=== PATIENT | female | born 2000 | race Two or more races ===

== ENCOUNTER 2024-11-19 07:14 | Emergency (ER) | payer OTHER, SELFPAY ==
[2024-11-19] VITALS (11 sets, daily range): BP systolic 118–123; BP diastolic 70–75; PULSE 100; RESP 18; TEMP 36.4; O2SAT 98–100
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
--- OUTSIDE RECORDS SUMMARY | 2024-11-19 07:19 | XMS_ITS | Encounter Summary ---
Author Organization [facility] Address [address] [place] [address] Phone Care Team Providers Care Ice Delivery Driver Name Role Phone Hollie Perry MD Primary Care Provider Hermann Leonard Primary Care Provider [phone] Encounter Details Date Type Department Care Team (Late st Contact Info) Description 11/30/2021 Lab Requisition [facility] [address] [place] [address] Karin Lin, MACHINE CEMENTER, PAVING BLOCK CUTTER [address] [place] [address] Encounter for pre-employment examination Social History Tobacco Use Types Packs/Day Years Used Date Smoking Tobacco: Never Smokeless Tobacco: Never Alcohol Use Standard Drinks/Week Comments Not Currently 0 (1 standard drink = 0.6 oz pur e alcohol) AUDIT-C Answer Date Recorded Frequency of Alcohol Consumption Never 03/13/2019 Average Number of Drinks Not on file 019 Frequency of Binge Drinking Not on file 02/23 PHQ-2 Answer Date Recorded Total Score - Questions 1-9 0 07/0 11/2020 Comments Unknown Sex and Gender Information Value Date Recorded Sex Assigned at Not on file Legal Sex Female 10:37 PM CDT Gender Identity Not on file Sexual Orientation Not on file COVID-19 Exposure Response Date Recorded In the last 10 days, have yo u been in contact with someone who was confirmed or suspected to have Coronavirus/COVID-19? Unable to assess 11/30/2021 1:28 PM CDT documented as of this encounter Plan of Treatment Not on file documented as of this encounter Procedures Procedure Name Priority Date/Time Associated Diagnosis Comments QUANTIFERON-TB GOLD PLUS Routine 11/30/2021 10:25 AM CDT Encounter for pre-employment examination documented in this encounter Results * QUANTIFERON-TB GOLD PLUS (11/30/2021 10:25 AM CDT) NIL CONTROL 0.04 <8.01 IU/mL 12/02/2021 11:24 AM CDT [facility] TB ANTIGEN 1 0.01 <0.35 IU/mL 12/02/2021 11:24 AM CDT [facility] TB ANTIGEN 2 0.03 <0.35 IU/mL 12/02/2021 11:24 AM CDT [facility] MITOGEN CONTROL >10.00 >0.49 IU/mL 12/03/19 11:24 AM CDT [facility] INTEPRETATION TB NEGATIVE NEGATIVE, NEGATIVE (TB antigen response less than 25% of internal negative control value) 12/02/2021 11:24 AM CDT [facility] Comment:No immune response t o Mycobacterium tuberculosis antigens was noted. M. tuberculosis infection unlikely. Blood No Phlebotomy Charged / Unknown 11/30/2021 10:25 AM CDT 11/30/2021 2:14 PM CDT Narrative [facility] - 12/02/2021 11:24 AM CDT A POSITIVE QUANTIFERON-TB GOLD PLUS RESULT SHOULD NOT BE THE SOLE OR DEFINITIVE BASIS FOR DETERMINING INFECTION WITH M.TUBERCULOSIS. Diagnosing or excluding tuberculosis disease, and assessing the probability of LTBI, requires a combination of epidemiological, historical, medical and diagnostic findings (e.g., acid fast bacilli (AFB) smear and culture, chest xray) that should be taken into account when interpreting QFT-Plus results. Furthermore, the magnitude of the measured gamma interferon level cannot be correlated to stage or degree of infection, level of immune responsiveness, or likelihood for progression to active disease. The Nil control adjusts for background (e.g., elevated levels of circulating gamma interferon or presence of heterophile antibodies). The Mitogen control serves as an internal positive control and verifies each specimen tested can produce a gamma interferon response. Low mitogen may occur with insufficient lymphocytes, reduced lymphocyte activity due to improper specimen handling, filling/mixing of the mitogen tube, or inability of the patient's lymphocytes to generate gamma interferon. Infection with other Mycobacteria, including M. kansasii, M. szulgai, and M. marinum, may cause false positive results. A negative QuantiFERON-TB Gold Plus result does not preclude the possibility of M. tuberculosis infection or tuberculosis disease: false negative results can be due to incorrect blood sample collection/ improper handling of the specimen, stage of infection (e.g., specimen obtained prior to the development of cellular immune response), co-morbid conditions which affect immune function, or other individual immunological factors. The minimum number of lymphocytes required for a reliable test has not been established and may also be variable. Diagnostic testing for Mycobacterium tuberculosis using Interferon Gamma Release Assays should follow applicable published guidelines, including when testing in populations such as children, women, and HIV-infected or otherwise immunocompromised individuals. https://www.cdc.gov/tb/publications/guidelines/testing.htm Karin Lin APRN, CNP IMMUNOLOGY ORDERABLES F inal Result [facility] [address] [place] [address], documented in this encounter Visit Diagnoses Diagnosis Encounter for pre-employment examination Health examination of defined subpopulation documented in this encounter Additional Health Concerns Assessment Noted Time PHQ-9 Depression Total Score: 0 10/02/19 21 9:00 AM CDT documented as of this encounter Care Teams Ice Delivery Driver Relationship Specialty Start Date End Date Hollie Perry MD [address] [place] [address] PCP - General Family Medicine 09/30/20 06/13/23 Hermann Leonard 4 [facility] , [address] [address] PCP - General Obstetrics & Gynecology 05/04/24 documented as of this encounter
--- OUTSIDE RECORDS SUMMARY | 2024-11-19 07:19 | XMS_ITS | Clinical Summary ---
Author Organization [facility] Address [address] [place] [address] Phone Care Team Providers Care Physical Education Department Chair Name Role Phone Hermann Leonard Primary Care Provider [phone] Allergies No known active allergies Medications traMADol (ULTRAM) 50 MG TabletIndicatio ns:Left cuboid fracture Take 1-2 Tablets by mouth every 6 hours as needed for Moderate or more severe pain. 15 Tablet 05/04/2024 Active Active Problems Problem Noted Date Diagnosed Date as incidental finding 10/21/2020 Positive test for herpes simplex virus (HSV) ant ibody 10/21/2020 Lower abdominal pain 10/01/2020 Possible exposure to STD 10/01/2020 Obesity (BMI 30.0-34.9) 10/01/2020 Marijuana user 10/01/2020 Immunizations Immunization Administration Dates Next Due [id number] rito MCV4, Unspecif ied Formulation 12/19/2012 DTAP VACCINE 02/17/2002,2001,2001 DTAP VACCINE, UNSPECIFIED FORMULATION 11/28/2005 ,01/26/2003 HEP B/HIB Combined Vaccine 2001 Hepatitis A Vaccine,unspecif ied Formulation 12/01/2004 Hepatitis A, Pediatric, Unsp ecified Formulation 03/12/2008 Hepatitis B Vaccine,unspecif ied Formulation 02/17/2002,2001 Hib Vaccine,unspecified Formulation 10/08/2002,1 2001,2001 Human Papillomavirus (HPV) 9 -valent Vaccine 12/31/2018,11/19/2014 Inactivated Polio Vaccine 11/28/2005,,2001,10/08 Influenza Vaccine 12/19/2012 MMR Vaccine 11/28/2005,07/30/2002 Meningococcal B, Recombinant 12/31/2018,12/20/19 13 Meningococcal Vaccine 12/31/2018 Pneumococcal Vaccine Peds - 7 Valent 05/2002,10/08/2002,2001,10/08 TDAP Vaccine 07/05/2011 Varicella Vaccine Live 03/12/2008,10/08/2002 Social History Tobacco Use Types Packs/Day Years [...] on file Sexual Orientation Not on file Last Filed Vital Signs Vital Sign Reading Time Taken Comments Blood Pressure 128/77 05/04/2024 3:14 PM TIRE VULCANIZER Pulse 88 05/04/2024 3:14 PM TIRE VULCANIZER Temperature 36.1 C (96.9 F) 05/04/2024 12:55 PM TIRE VULCANIZER Respiratory Rate 16 05/04/2024 3:14 PM TIRE VULCANIZER Oxygen Saturation 100% 05/04/2024 3:14 PM TIRE VULCANIZER Inhaled Oxygen Concentration - - Weight 77.1 kg (170 lb) 05/04/2024 12:55 PM TIRE VULCANIZER Height 162.6 cm (5' 4) 05/04/2024 12:55 PM TIRE VULCANIZER Body Mass Index 29.18 05/04/2024 12:55 PM TIRE VULCANIZER Plan of Treatment Health Maintenance Due Date Last Done Comments Pap Smear 2022 SARS-COV-2 Immunization (1 - season) 2023 Influenza Immunization (#1) 2024 12/19/2012 DTaP/Tdap/Td Immunization (8 - Td or Tdap) 04/08/2031 04/08/2021, 07/05/2011, 11/28/2005, Additional history exists Respiratory Syncytial Virus (RSV) Immunization (Adult) (1 - 1-dose 75+ series) 2076 Hepatitis B Immunization Completed 002, 2001, 2001 Pneumococcal Immunization Combined Aged Out 01/26/2003, 10/08/2002, 2001, Additional history exists No longer eligible based on patient's age to complete this topic Measles Mumps Rubella (MMR) Immunization Discontinued 11/28/2005, 07/30/2002 Polio (IPV) Immunization Discontinued 006, 10/08/2002, 2001, Additional history exists Hepatitis A Immunization Discontinued 03/12/2008, 10/2004 Varicella Immunization Discontinued 03/12/2008, 2002 Human Papillomavirus (HPV) Immunization Completed 12/31/2018, 11/19/2014 Meningococcal B Immunization Completed 12/31/2018, 12/19/2012 Meningococcal Immunization (ACWY) Completed 12/31/2018, 12/19/2012 Hepatitis C Virus (HCV) Screening Completed 10/13/2020 Rotavirus Immunization Aged Out No lo nger eligible based on patient's age to complete this topic Procedures Procedure Name Priority Date/Time Associated Diagnosis Comments HEPATITIS PANEL ACUTE (AHP) Routine 10/13/2020 10:39 AM CDT Possible exposure to STD from Last 3 Months or Most Recently Relevant to Health Maintenance Results * HEPATITIS PANEL ACUTE (AHP) (10/13/2020 10:39 AM CDT) HEPATITIS A IGM ANTIBODY NON DETECTED NON DETECTED [facility] ARCH [id number] B 10/13/2020 8:57 PM CDT [facility] Comment: IGM Antibodies to HAV not detected. Does not exclude early acute or recovered HAV infection. HEP B CORE AB (IGM) NON DETECTED NON DETECTED [facility] ARCH [id number] B 10/13/2020 8:57 PM CDT [facility] Comment:IGM anti-HBC not det ected. Does not exclude the possibility of exposure to or infection with HBV. HEPATITIS B SURFACE ANTIGEN NON DETECTED NON DETECTED [facility] ARCH [id number] B 10/13/2020 8:57 PM CDT [facility] Comment:A nonreactive test r esult does not exclude the possibility of exposure to or infection with Hepatitis B virus. A nonreactive test result in individuals with prior exposure to hepatitis B may be due to antigen levels below the detection limit of this assay or lack of antigen reactivity to the antibodies in this assay. hepatitis C antibody 0.41 <1 S/CO [facility] ARCH [id number] B 10/13/2020 8:57 PM CDT [facility] Comment: Signal/Cutoff ratio < 0.79 is Nondetected Signal/Cutoff ratio 0.80-0.99 is Grayzone Signal/Cutoff ratio > 0.99 is Detected Supplemental assays are recommended if signal/cutoff ratio is >/=1.00. Signal/cutoff ratio result >/= 5.00 is 97% predictive of positivity for recombinant immunoblot assay (RIBA) and will be reported to the [place] Department of Public Health as required. Blood Venipuncture / Unknown 10/13/2020 10:39 AM CDT 10/13/2020 10:39 AM CDT us Hollie Perry MD HEMATOLOGY ORDERABLES Final Result [facility] [address] [place] [address], from Last 3 Months or Most Recently Relevant to Health Maintenance Insurance [employer] * Guarantor: [facility] [employer] Account Type Relation to Patient Date of Phone Billing Address Institutional Other [address] [place] [address] Care Teams Physical Education Department Chair Relationship Specialty Start Date End Date Hermann Leonard [address] [facility] [place] [address] PCP - General Obstetrics & Gynecology 05/04/24
--- NOTE | 2024-11-19 07:34 | ED_ITS ---
HPI - General Chief complaint: Vaginal Bleeding Stated complaint: 14 weeks preg, vag bleeding Time Seen by Provider: 11/19/24 07:19 History of Present Illness HPI Narrative: This is a 24-year-old female approximately 14 weeks by ultrasound who presents to the ED for vaginal bleeding. Patient states that she woke up this morning with a large lower abdominal cramps and noticed some mucousy discharge mixed with blood. She went to the bathroom and had a small amount of blood in the toilet prompting her to come to the ED. She states the pain is better now. Her has otherwise been uncomplicated. Related Data Allergies Allergy/AdvReac Type Severity Reaction Status Date / Time No Known Allergies Allergy Unknown Verified 11/19/24 07:30 Review of Systems 2 Review of Systems: Gen.: Denies fevers or chills Eyes: Denies eye pain or visual change ENT: Denies congestion Respiratory: Denies shortness of breath or cough CV: Denies chest pain or palpitations GI: As per HPI as per HPI Musculoskeletal: Denies back pain or muscle pain Neuro: Denies numbness, tingling, weakness or focal weakness Skin: Denies rash Except as documented, all other systems reviewed and negative [facility] Social History Social History Smoking status: Never smoker Alcohol intake: never Substance use: former Substance use type: marijuana Do You Feel Safe in your Home?: Yes Lack of Transportation: No Lack of Food: Never True Current Housing: I Have Housing Concerned About Future Housing: No Difficulty Paying Gas/Electric Bills: No Difficulty Paying for Meds: No Currently Unemployed: No Education: High School Diploma/GED Difficulty w/ Childcare or Family Care: No Living arrangements: with family 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 CARDIOVASCULAR: Regular rate and rhythm without murmurs rubs or gallops. ABDOMINAL: Soft, nontender, nondistended, no rebound or guarding. Uterus palpable above the pubic symphysis, no tenderness. MUSCULOSKELETAl: Moves all extremities. No clubbing, cyanosis or edema. NEURO: Awake and alert. Following commands, speech normal, no focal deficits SKIN:: Warm, dry. No rashes lesions or abrasions PSYCHIATRIC: Normal affect/mood, Course Vital Signs Vital signs: Vital Signs Blood Pressure 123/75 11/19/24 07:24 Pulse Oximetry 100 11/19/24 07:24 Temperature 97.6 F 11/19/24 07:26 Pulse Rate 100 11/19/24 07:26 Respiratory Rate 18 11/19/24 07:26 Blood Pressure 118/70 11/19/24 07:31 Pulse Oximetry 100 11/19/24 08:32 Oxygen Delivery Room Air 11/19/24 07:26 MDM - OB/Uterine Contractions MDM Narrative Medical decision making narrative: 24-year-old female who presented to the ED for transient vaginal bleeding and mild suprapubic pain. My initial evaluation, patient is in no acute distress, afebrile and hemodynamically stable. She had no significant abdominal tenderness palpation heart tones 145. CBC and CMP were without significant abnormalities. UA showed signs of an early UTI. Patient will be started on Keflex. Advised follow-up with her OBGYN as scheduled. Patient agreeable to this plan. Given strict return precautions. Differential Diagnosis Differential diagnosis: Likely other (UTI, threatened miscarriage, vaginal bleeding in ) Medical Records Attestation: I reviewed the patient's medical records. Lab Data Attestation: I reviewed the patient's lab results. 11/19/24 07:28 11/19/24 07:28 Labs: Lab Results 11/19/24 Range/Units 07:28 WBC 10.8 H (4.5-10.0) K/mm3 RBC 4.02 L (4.2-5.4) M/mm3 Hgb 12.4 (12.0-15.0) g/dL Hct 35.4 L (37.0-47.0) % MCV 88.1 (80-100) fl MCH 30.8 (26-34) pg MCHC 35.0 (32-36) g/dl RDW 13.3 (11.5-14.5) % Plt Count 232 (150-375) k/mm3 MPV 11.8 H (7.4-10.4) fl Immature Gran % (Auto) 0.3 (0-0.5) % Neut % (Auto) 67.1 (45.5-73.1) % Lymph % (Auto) 25.9 (18.3-44.2) % Preble % (Auto) 4.6 (2.6-8.5) % Eos % (Auto) 1.8 (0-4.4) % Baso % (Auto) 0.3 (0.2-1.2) % Lymph # (Auto) 2.79 (0.9-3.2) K/mm3 Preble # (Auto) 0.5 (0.1-0.6) K/mm3 Eos # (Auto) 0.2 (0-0.3) K/mm3 Baso # (Auto) 0.0 (0.0-0.1) K/mm3 Abs Immat Gran (auto) 0.03 (0.00-0.031) K/mm3 Absolute Neuts (auto) 7.2 H (1.3-6.7) K/mm3 Absolute Nucleated RBC 0.000 (0.0-0.012) K/mm3 Nucleated RBC % 0.0 (0.0-0.2) % PT 13.1 (11.1-14.7) Seconds INR 1.0 APTT 24.8 (22.3-36.8) Seconds Sodium 133 L (137-145) mmol/L Potassium 3.6 (3.4-5.0) mmol/L Chloride 106 (98-107) mmol/L Carbon Dioxide 21 L (22-30) mmol/L Anion Gap 6 (4-12) mmol/L BUN 6 L (7-17) mg/dL Creatinine 0.51 L (0.7-1.0) mg/dL Estim Creat Clear Calc 161 ml/min Estimated GFR > 60 (59 - ) Glucose 112 H (65-110) mg/dL Calcium 8.9 (8.4-10.2) mg/dL Total Bilirubin 0.3 (0.2-1.3) mg/dL AST 23 (14-36) U/L ALT 13 (6-35) U/L Alkaline Phosphatase 56 (38-126) U/L Total Protein 6.8 (6.3-8.2) g/dL Albumin 3.6 (3.5-5.1) g/dL Beta HCG, Quant 04523.00 mIU/ML Urine Color Yellow (Yellow) Urine Appearance Cloudy H (Clear) Urine pH 6.0 (5.0-9.0) Ur Specific Mikado 1.021 (1.001-1.035) Urine Protein Negative (Negative) mg/dL Urine Glucose (UA) Negative (Negative) mg/dL Urine Ketones Negative (Negative) mg/dL Ur Blood (Man) 1+ H (Negative) Urine Nitrate Negative (Negative) Urine Bilirubin Negative (Negative) Urine Urobilinogen 0.2 (<2.0) mg/dL Add Ur Microanalysis Reviewed Leukocyte Esterase Rfl Trace H (Negative) HUNG/UL Urine RBC 0-2 (0-2) /hpf Urine WBC 6-10 H (0-3) /hpf Ur Squamous Epith Cells Occasional (Few) /hpf Calcium Oxalate Crystal Present (None) /hpf Urine Bacteria None seen /hpf Urine Casts 0-2 Blood Type AB Positive Antibody Screen Negative Screen Not Reportable Baby's Blood Type Not Reportable Baby's JOSIANE Not Reportable Doses of RhIg Required 0 Discharge Plan Discharge Clinical Impression: Vaginal bleeding UTI (urinary tract infection) during Qualifiers: Trimester: second trimester Qualified Code(s): O23.42 - Unspecified infection of urinary tract in , second trimester Patient Disposition: Home Condition: Stable Instructions: Antibiotic Form, Urinary Tract Infection in (ED) Additional Instructions: The urinalysis showed evidence of UTI. Your given a prescription for Keflex, take this as prescribed. Follow-up with your OBGYN as scheduled. Return ED for any new or worsening symptoms. Patient Language: Japanese Prescriptions: New cephalexin 500 mg capsule 500 mg PO Q12H 7 Days Qty: 14 0RF Follow-up/Referrals: PHYSICIAN NOT ON STAFF,NONSTAFF [Primary Care Provider]
[2024-11-19 07:42] LABS: Hematocrit 35.4 % (37.0-47.0); Hemoglobin 12.4 g/dL (12.0-15.0); Immature Granulocyte Percent A 0.3 % (0-0.5); Lymphocytes Absolute Auto 2.79 K/mm3 (0.9-3.2); Mean Corpuscular HGB Conc 35.0 g/dl (32-36); Mean Corpuscular Hemoglobin 30.8 pg (26-34); Mean Corpuscular Volume 88.1 fl (80-100); Nucleated Red Blood Cells Absolute Auto 0.000 K/mm3 (0.0-0.012); Nucleated Red Blood Cells Perc 0.0 % (0.0-0.2); Platelet Count Result 232 k/mm3 (150-375); Red Blood Count 4.02 M/mm3 (4.2-5.4); White Blood Count 10.8 K/mm3 (4.5-10.0)
[2024-11-19 08:02] LABS: Alanine Aminotransferase 13 U/L (6-35); Albumin Level 3.6 g/dL (3.5-5.1); Alkaline Phosphatase 56 U/L (38-126); Anion Gap 6 mmol/L (4-12); Aspartate Amino Transferase 23 U/L (14-36); Bilirubin,Total 0.3 mg/dL (0.2-1.3); Blood Urea Nitrogen 6 mg/dL (7-17); Calcium 8.9 mg/dL (8.4-10.2); Carbon Dioxide 21 mmol/L (22-30); Chloride 106 mmol/L (98-107); Estimated CRCL calculation 161 ml/min; Estimated Glomerular Filt Rate > 60; Glucose 112 mg/dL (65-110); Potassium 3.6 mmol/L (3.4-5.0); Sodium 133 mmol/L (137-145); Total Protein 6.8 g/dL (6.3-8.2)
[2024-11-19 08:07] LABS: INR 1.0; Prothrombin Time 13.1 Seconds (11.1-14.7)
[2024-11-19 08:09] LABS: Partial Thromboplastin Time 24.8 Seconds (22.3-36.8)
--- NOTE | 2024-11-19 08:43 | PC.NURSE ---
Resting on cart. No active bleeding since arrival.
[2024-11-19 08:46] LABS: Beta HCG Quantitative 47402.00 mIU/ML
[2024-11-19 09:14] LABS: Add Urine Microscopic? YES; Appearance Urine Cloudy (Clear); Glucose Urine UA Negative (Negative); Leukocyte Esterase Ur Trace LEU/UL (Negative); Need Manual Microscopic Reviewed; Nitrate Urine Negative (Negative); Non Pathogenic Casts 0-2; Specific Grav Ur 1.021 (1.001-1.035)
== END 2024-11-19 09:41 | disposition home or self-care (01) ==
PROVIDERS: Emergency Provider Student in an Organized Health Care Education/Training Program
DX: O20.9 Hemorrhage in early pregnancy, unspecified (principal); O23.42 Unspecified infection of urinary tract in pregnancy, second trimester; N39.0 Urinary tract infection, site not specified; Z3A.14 14 weeks gestation of pregnancy
CPT/HCPCS: 36415; 80053; 81001; 84702; 85025; 85461; 85610; 85730; 86850; 86900; 86901; 87086; 99284

== ENCOUNTER 2024-11-21 14:39 | Outpatient (CLI) | payer OTHER, SELFPAY ==
--- OUTSIDE RECORDS SUMMARY | 2024-11-21 14:42 | XMS_ITS | Clinical Summary ---
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 gonorrhoeae Not detected Not detected ROCKYSONIA MARTINEZ (ANALY) Comment: Testing performed by the [facility]. This assay detects Chlamydia trachomatis and Neisseria gonorrhoeae by nucleic acid amplification testing (NAAT). This test is approved by the [facility] Food and Drug Administration and the performance characteristics have been verified by the laboratory. The performance characteristics of this test have not been evaluated in women or individuals less than 16 years of age. Testing performed by: [facility], [address] [place] [address], [place]., [address] Urine (None) 10/19/2020 12:5 1 AM CDT 10/19/2020 8:54 AM CDT Ricky Cedeño MD LAB MICROBIOLOGY - GENERAL OR DERABLES Final Result DARRELL MARTINEZ ([place]) 1 [facility] Department [place] [address] from Last 3 Months or Most Recently Relevant to Health Maintenance Insurance [facility] Advance Directives For more information, please contact: [phone] * Full Code (Latest Code Status on [...] in case of cardiopulmonary arrest Care Teams Metal Tile Lather Relationship Specialty Start Date End Date Hermann Leonard MD [address] [address] PCP - General 09/07/20 Eagle Watt MD Consulting Physician Obstetrics and Gynecology 08/30/18
--- OUTSIDE RECORDS SUMMARY | 2024-11-21 14:42 | XMS_ITS | Clinical Summary ---
Author Organization [facility] Address [address] [place] [address] Phone Care Team Providers Care Chicken Fancier Name Role Phone Hermann Leonard Primary Care Provider [phone] Allergies No known active allergies Medications traMADol [...] 10/01/2020 Immunizations Immunization Administration Dates Next Due [id number] rito MCV4, Unspecif ied Formulation 12/19/2012 DTAP [...] Comments Blood Pressure 128/77 05/04/2024 3:14 PM SLIP OPERATOR Pulse 88 05/04/2024 3:14 PM SLIP OPERATOR Temperature 36.1 C (96.9 F) 05/04/2024 12:55 PM SLIP OPERATOR Respiratory Rate 16 05/04/2024 3:14 PM SLIP OPERATOR Oxygen Saturation 100% 05/04/2024 3:14 PM SLIP OPERATOR Inhaled Oxygen Concentration - - Weight 77.1 kg (170 lb) 05/04/2024 12:55 PM SLIP OPERATOR Height 162.6 cm (5' 4) 05/04/2024 12:55 PM SLIP OPERATOR Body Mass Index 29.18 05/04/2024 12:55 PM SLIP OPERATOR Plan of Treatment Health Maintenance Due Date [...] A IGM ANTIBODY NON DETECTED NON DETECTED [facility] ARCH [id number] B 10/13/2020 8:57 PM CDT [facility] Comment: IGM Antibodies to HAV not detected. Does not exclude early acute or recovered HAV infection. HEP B CORE AB (IGM) NON DETECTED NON DETECTED [facility] ARCH [id number] B 10/13/2020 8:57 PM CDT [facility] Comment:IGM anti-HBC not det ected. Does not exclude the possibility of exposure to or infection with HBV. HEPATITIS B SURFACE ANTIGEN NON DETECTED NON DETECTED [facility] ARCH [id number] B 10/13/2020 8:57 PM CDT [facility] Comment:A nonreactive test r esult does not exclude the possibility of exposure to or infection with Hepatitis B virus. A nonreactive test result in individuals with prior exposure to hepatitis B may be due to antigen levels below the detection limit of this assay or lack of antigen reactivity to the antibodies in this assay. hepatitis C antibody 0.41 <1 S/CO [facility] ARCH [id number] B 10/13/2020 8:57 PM CDT [facility] Comment: Signal/Cutoff ratio < 0.79 is Nondetected Signal/Cutoff ratio 0.80-0.99 is Grayzone Signal/Cutoff ratio > 0.99 is Detected Supplemental assays are recommended if signal/cutoff ratio is >/=1.00. Signal/cutoff ratio result >/= 5.00 is 97% predictive of positivity for recombinant immunoblot assay (RIBA) and will be reported to the [place] Department of Public Health as required. Blood Venipuncture / Unknown 10/13/2020 10:39 AM CDT 10/13/2020 10:39 AM CDT us Hollie Perry MD HEMATOLOGY ORDERABLES Final Result [facility] [address] [place] [address], from Last 3 Months or Most Recently Relevant to Health Maintenance Insurance [employer] * Guarantor: [facility] Account Type Relation to Patient Date of Phone Billing Address Institutional Other [address] [place] [address] Care Teams Chicken Fancier Relationship Specialty Start Date End Date Hermann Leonard [address] [facility] [place] [address] PCP - General Obstetrics & Gynecology 05/04/24
--- OUTSIDE RECORDS SUMMARY | 2024-11-21 14:42 | XMS_ITS | Encounter Summary ---
Author Organization [facility] Address [address] [place] [address] Phone Care Team Providers Care Animal Care Worker Name Role Phone Hollie Perry MD Primary Care Provider Hermann Leonard Primary Care Provider [phone] Encounter Details Date Type Department Care Team (Late st Contact Info) Description 11/30/2021 Lab Requisition [facility] Laboratory Services [address] [place] [address] Karin Lin, PATIENT SERVICES CLERK, CHAINSTITCH ZIPPER SETTER [address] [place] [address] Encounter for pre-employment examination Social [...] 0.04 <8.01 IU/mL 12/02/2021 11:24 AM CDT [facility] TB ANTIGEN 1 0.01 <0.35 IU/mL 12/02/2021 11:24 AM CDT [facility] TB ANTIGEN 2 0.03 <0.35 IU/mL 12/02/2021 11:24 AM CDT [facility] MITOGEN CONTROL >10.00 >0.49 IU/mL 12/03/19 11:24 AM CDT [facility] INTEPRETATION TB NEGATIVE NEGATIVE, NEGATIVE (TB antigen response less than 25% of internal negative control value) 12/02/2021 11:24 AM CDT [facility] Comment:No immune response t o Mycobacterium tuberculosis antigens was noted. M. tuberculosis infection unlikely. Blood No Phlebotomy Charged / Unknown 11/30/2021 10:25 AM CDT 11/30/2021 2:14 PM CDT Narrative [facility] - 12/02/2021 11:24 AM CDT A POSITIVE [...] APRN, CNP IMMUNOLOGY ORDERABLES F inal Result [facility] [address] [place] [address], documented in this encounter Visit Diagnoses Diagnosis Encounter for pre-employment examination Health examination of defined subpopulation documented in this encounter Additional Health Concerns Assessment Noted Time PHQ-9 Depression Total Score: 0 10/02/19 21 9:00 AM CDT documented as of this encounter Care Teams Animal Care Worker Relationship Specialty Start Date End Date Hollie Perry MD [address] [place] [address] PCP - General Family Medicine 09/30/20 06/13/23 Hermann Leonard 4 [facility] , [address] [address] PCP - General Obstetrics & Gynecology 05/04/24 documented as of this encounter
[2024-11-21 15:22] LABS: Hematocrit 35.7 % (37.0-47.0); Hemoglobin 12.4 g/dL (12.0-15.0); Mean Corpuscular HGB Conc 34.7 g/dl (32-36); Mean Corpuscular Hemoglobin 30.5 pg (26-34); Mean Corpuscular Volume 87.7 fl (80-100); Platelet Count Result 221 k/mm3 (150-375); Red Blood Count 4.07 M/mm3 (4.2-5.4); White Blood Count 9.2 K/mm3 (4.5-10.0)
[2024-11-21 16:16] LABS: HIV 1/2 Ab P24 Ag Result Negative (Negative)
[2024-11-21 16:21] LABS: Syphilis IgG/IgM Antibody Non-Reactive (Nonreactive)
[2024-11-21 16:27] LABS: Hepatitis B Surface Antigen Negative (Negative)
[2024-11-21 16:52] LABS: Beta HCG Quantitative 41384.00 mIU/ML
[2024-11-22 07:09] LABS: Cytomegalovirus (CMV) Ab, IgG 6.90 U/mL (0.00-0.59)
[2024-11-25 12:07] LABS: Varicella-Zoster Ab, IgG Reactive (Non Reactive); Varicella-Zoster Ab, IgM <0.91 index (0.00-0.90)
[2024-11-26 12:08] LABS: Parvovirus B19, IgG 6.9 index (0.0-0.8); Parvovirus B19, IgM 0.1 index (0.0-0.8)
== END 2024-11-21 14:40 | disposition home or self-care (01) ==
LOC: ANHLAB 14:40
PROVIDERS: Visit Provider Student in an Organized Health Care Education/Training Program
DX: N91.2 Amenorrhea, unspecified (principal)
CPT/HCPCS: 36415; 84702; 85027; 85660; 86593; 86644; 86703; 86747; 86762; 86787; 86850; 86900; 86901; 87086; 87340; G0432

== ENCOUNTER 2024-11-28 16:19 | Emergency (ER) | payer OTHER, SELFPAY ==
--- OUTSIDE RECORDS SUMMARY | 2024-11-28 16:23 | XMS_ITS | Encounter Summary ---
Author Organization [facility] Address [address] [place] [address] Phone Care Team Providers Care Home Performance Laborer Name Role Phone Hollie Perry MD Primary Care Provider [phone] Hermann Leonard Primary Care Provider [phone] Encounter Details Date Type Department Care Team (Late st Contact Info) Description 11/30/2021 Lab Requisition [facility] Laboratory Services [address] [place] [address] Karin iLn, OBSTETRICAL TECH, QUARTER INSPECTOR [address] [place] [address] Encounter for pre-employment examination Social [...] 0.04 <8.01 IU/mL 12/02/2021 11:24 AM CDT [facility] TB ANTIGEN 1 0.01 <0.35 IU/mL 12/02/2021 11:24 AM CDT [facility] TB ANTIGEN 2 0.03 <0.35 IU/mL 12/02/2021 11:24 AM CDT [facility] MITOGEN CONTROL >10.00 >0.49 IU/mL 12/03/19 11:24 AM CDT [facility] INTEPRETATION TB NEGATIVE NEGATIVE, NEGATIVE (TB antigen response less than 25% of internal negative control value) 12/02/2021 11:24 AM CDT [facility] Comment:No immune response t o Mycobacterium tuberculosis antigens was noted. M. tuberculosis infection unlikely. Blood No Phlebotomy Charged / Unknown 11/30/2021 10:25 AM CDT 11/30/2021 2:14 PM CDT Narrative [facility] - 12/02/2021 11:24 AM CDT A [...] APRN, CNP IMMUNOLOGY ORDERABLES F inal Result [facility] [address] [place] [address], documented in this encounter Visit Diagnoses Diagnosis Encounter for pre-employment examination Health examination of defined subpopulation documented in this encounter Additional Health Concerns Assessment Noted Time PHQ-9 Depression Total Score: 0 10/02/19 21 9:00 AM CDT documented as of this encounter Care Teams Home Performance Laborer Relationship Specialty Start Date End Date Hollie Perry MD [address] [place] [address] PCP - General Family Medicine 09/30/20 06/13/23 Hermann Leonard 4 [facility] , [address] [address] PCP - General Obstetrics & Gynecology 05/04/24 documented as of this encounter
--- OUTSIDE RECORDS SUMMARY | 2024-11-28 16:23 | XMS_ITS | Clinical Summary ---
Author Organization [facility] Address [address] [place] [address] Phone Care Team Providers Care Import/Export Freight Forwarder Name Role Phone Hermann Leonard Primary Care Provider [phone] Allergies No known active allergies Medications traMADol [...] 10/01/2020 Immunizations Immunization Administration Dates Next Due [id number] rito MCV4, Unspecif ied Formulation 12/19/2012 DTAP [...] Comments Blood Pressure 128/77 05/04/2024 3:14 PM FISH FROG OR OYSTER FARMER Pulse 88 05/04/2024 3:14 PM FISH FROG OR OYSTER FARMER Temperature 36.1 C (96.9 F) 05/04/2024 12:55 PM FISH FROG OR OYSTER FARMER Respiratory Rate 16 05/04/2024 3:14 PM FISH FROG OR OYSTER FARMER Oxygen Saturation 100% 05/04/2024 3:14 PM FISH FROG OR OYSTER FARMER Inhaled Oxygen Concentration - - Weight 77.1 kg (170 lb) 05/04/2024 12:55 PM FISH FROG OR OYSTER FARMER Height 162.6 cm (5' 4) 05/04/2024 12:55 PM FISH FROG OR OYSTER FARMER Body Mass Index 29.18 05/04/2024 12:55 PM FISH FROG OR OYSTER FARMER Plan of Treatment Health Maintenance Due Date Last Done Comments Pap Smear 2022 Influenza Immunization (#1) 2024 12/19/2012 SARS-COV-2 Immunization ( season) 2024 DTaP/Tdap/Td Immunization (8 - Td or Tdap) [...] A IGM ANTIBODY NON DETECTED NON DETECTED [facility] ARCH [id number] B 10/13/2020 8:57 PM CDT [facility] Comment: IGM Antibodies to HAV not detected. Does not exclude early acute or recovered HAV infection. HEP B CORE AB (IGM) NON DETECTED NON DETECTED [facility] ARCH [id number] B 10/13/2020 8:57 PM CDT [facility] Comment:IGM anti-HBC not det ected. Does not exclude the possibility of exposure to or infection with HBV. HEPATITIS B SURFACE ANTIGEN NON DETECTED NON DETECTED [facility] ARCH [id number] B 10/13/2020 8:57 PM CDT [facility] Comment:A nonreactive test r esult does not exclude the possibility of exposure to or infection with Hepatitis B virus. A nonreactive test result in individuals with prior exposure to hepatitis B may be due to antigen levels below the detection limit of this assay or lack of antigen reactivity to the antibodies in this assay. hepatitis C antibody 0.41 <1 S/CO [facility] ARCH [id number] B 10/13/2020 8:57 PM CDT [facility] Comment: Signal/Cutoff ratio < 0.79 is Nondetected Signal/Cutoff ratio 0.80-0.99 is Grayzone Signal/Cutoff ratio > 0.99 is Detected Supplemental assays are recommended if signal/cutoff ratio is >/=1.00. Signal/cutoff ratio result >/= 5.00 is 97% predictive of positivity for recombinant immunoblot assay (RIBA) and will be reported to the [place] Department of Public Health as required. Blood Venipuncture / Unknown 10/13/2020 10:39 AM CDT 10/13/2020 10:39 AM CDT us Hollie Perry MD HEMATOLOGY ORDERABLES Final Result [facility] [address] [place] [address], from Last 3 Months or Most Recently Relevant to Health Maintenance Insurance [employer] * Guarantor: [facility] Account Type Relation to Patient Date of Phone Billing Address Institutional Other [address] [place] [address] Care Teams Import/Export Freight Forwarder Relationship Specialty Start Date End Date Hermann Leonard [address] [facility] [place] [address] PCP - General Obstetrics & Gynecology 05/04/24
--- OUTSIDE RECORDS SUMMARY | 2024-11-28 16:23 | XMS_ITS | Clinical Summary ---
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 gonorrhoeae Not detected Not detected ROCKYSONIA MARTINEZ (ANALY) Comment: Testing performed by the [facility]. This assay detects Chlamydia trachomatis and Neisseria gonorrhoeae by nucleic acid amplification testing (NAAT). This test is approved by the [facility] Food and Drug Administration and the performance characteristics have been verified by the laboratory. The performance characteristics of this test have not been evaluated in women or individuals less than 16 years of age. Testing performed by: [facility], [address] [place] [address], [place] [address] Urine (None) 10/19/2020 12:5 1 AM CDT 10/19/2020 8:54 AM CDT Ricky Cedeño MD LAB MICROBIOLOGY - GENERAL OR DERABLES Final Result DARRELL MARTINEZ ([place]) 1 [facility] Department [place] [address] from Last 3 Months or Most Recently Relevant to Health Maintenance Insurance [facility] Advance Directives For more information, please contact: [phone] * Full Code (Latest Code Status on [...] in case of cardiopulmonary arrest Care Teams Learning Development Specialist Relationship Specialty Start Date End Date Hermann Leonard MD [address] [facility] [address] [place] [address] [address] PCP - General 09/07/20 Eagle Watt MD Consulting Physician Obstetrics and Gynecology 08/30/18
[2024-11-28 16:25] VITALS: BP 124/74; PULSE 83; RESP 20; TEMP 36.6; O2SAT 98
--- OUTSIDE RECORDS SUMMARY | 2024-11-28 17:55 | XMS_ITS | Clinical Summary ---
Author Organization [facility] Address [address] [place] [address] Care Team Providers Care Manufacturing Engineer Chief Name Role Phone Eagle Watt MD Unavailable [...] on file Legal Sex Female 4:40 PM IT SUPPORT CONSULTANT Gender Identity Not on file Sexual Orientation [...] DARRELL HENRIQUEZ (ANALY) Comment:Testing performed by : [facility], [address] [place] [address], [place]., [address] N. gonorrhoeae Not detected Not detected ROCKYSONIA MARTINEZ (ANALY) Comment: Testing performed by the [facility] Laboratory. This assay detects Chlamydia trachomatis and Neisseria gonorrhoeae by nucleic acid amplification testing (NAAT). This test is approved by the [facility] Food and Drug Administration and the performance characteristics have been verified by the laboratory. The performance characteristics of this test have not been evaluated in women or individuals less than 16 years of age. Testing performed by: [facility], [address] [place] [address], [place]., [address] Urine (None) 10/19/2020 12:5 1 AM CDT 10/19/2020 8:54 AM CDT Ricky Cedeño MD LAB MICROBIOLOGY - GENERAL OR DERABLES Final Result DARRELL MARTINEZ ([place]) 1 [facility] [place] [address] from Last 3 Months or Most Recently Relevant to Health Maintenance Insurance [facility] Advance Directives For more information, please contact: [phone] * Full Code (Latest Code Status on [...] in case of cardiopulmonary arrest Care Teams Manufacturing Engineer Chief Relationship Specialty Start Date End Date Hermann Leonard MD [address] [facility] [address] [address] PCP - General 09/07/20 Eagle Watt MD Consulting Physician Obstetrics and Gynecology 08/30/18
--- OUTSIDE RECORDS SUMMARY | 2024-11-28 17:55 | XMS_ITS | Encounter Summary ---
Author Organization [facility] Address [address] [place] [address] Phone Care Team Providers Care Pinion And Wheel Truer Name Role Phone Hollie Perry MD Primary Care Provider Hermann Leonard Primary Care Provider Encounter Details Date Type Department Care Team (Late st Contact Info) Description 11/30/2021 Lab Requisition [facility] [address] [place] [address] Karin Lin, SUPPLY PLANNER, FREIGHT CAR BUILDER [address] [place] [address] Encounter for pre-employment examination Social [...] 0.04 <8.01 IU/mL 12/02/2021 11:24 AM CDT [facility] TB ANTIGEN 1 0.01 <0.35 IU/mL 12/02/2021 11:24 AM CDT [facility] TB ANTIGEN 2 0.03 <0.35 IU/mL 12/02/2021 11:24 AM CDT [facility] MITOGEN CONTROL >10.00 >0.49 IU/mL 12/03/19 11:24 AM CDT [facility] INTEPRETATION TB NEGATIVE NEGATIVE, NEGATIVE (TB antigen response less than 25% of internal negative control value) 12/02/2021 11:24 AM CDT [facility] Comment:No immune response t o Mycobacterium tuberculosis antigens was noted. M. tuberculosis infection unlikely. Blood No Phlebotomy Charged / Unknown 11/30/2021 10:25 AM CDT 11/30/2021 2:14 PM CDT Narrative [facility] - 12/02/2021 11:24 AM CDT A POSITIVE [...] APRN, CNP IMMUNOLOGY ORDERABLES F inal Result [facility] [address] [place] [address], documented in this encounter Visit Diagnoses Diagnosis Encounter for pre-employment examination Health examination of defined subpopulation documented in this encounter Additional Health Concerns Assessment Noted Time PHQ-9 Depression Total Score: 0 10/02/19 21 9:00 AM CDT documented as of this encounter Care Teams Pinion And Wheel Truer Relationship Specialty Start Date End Date Hollie Perry MD [address] [place] [address] PCP - General Family Medicine 09/30/20 06/13/23 Hermann Leonard 4 [facility] , [address] [address] PCP - General Obstetrics & Gynecology 05/04/24 documented as of this encounter
--- OUTSIDE RECORDS SUMMARY | 2024-11-28 17:55 | XMS_ITS | Clinical Summary ---
Author Organization [facility] Address [address] [place] [address] Phone Care Team Providers Care Motel Keeper Name Role Phone Hermann Leonard Primary Care Provider [phone] Allergies No known active allergies Medications traMADol [...] 10/01/2020 Immunizations Immunization Administration Dates Next Due [id number] rito MCV4, Unspecif ied Formulation 12/19/2012 DTAP [...] Comments Blood Pressure 128/77 05/04/2024 3:14 PM BELT LOOP CUTTER Pulse 88 05/04/2024 3:14 PM BELT LOOP CUTTER Temperature 36.1 C (96.9 F) 05/04/2024 12:55 PM BELT LOOP CUTTER Respiratory Rate 16 05/04/2024 3:14 PM BELT LOOP CUTTER Oxygen Saturation 100% 05/04/2024 3:14 PM BELT LOOP CUTTER Inhaled Oxygen Concentration - - Weight 77.1 kg (170 lb) 05/04/2024 12:55 PM BELT LOOP CUTTER Height 162.6 cm (5' 4) 05/04/2024 12:55 PM BELT LOOP CUTTER Body Mass Index 29.18 05/04/2024 12:55 PM BELT LOOP CUTTER Plan of Treatment Health Maintenance Due Date [...] A IGM ANTIBODY NON DETECTED NON DETECTED [facility] ARCH [id number] B 10/13/2020 8:57 PM CDT [facility] Comment: IGM Antibodies to HAV not detected. Does not exclude early acute or recovered HAV infection. HEP B CORE AB (IGM) NON DETECTED NON DETECTED [facility] ARCH [id number] B 10/13/2020 8:57 PM CDT [facility] Comment:IGM anti-HBC not det ected. Does not exclude the possibility of exposure to or infection with HBV. HEPATITIS B SURFACE ANTIGEN NON DETECTED NON DETECTED [facility] ARCH [id number] B 10/13/2020 8:57 PM CDT [facility] Comment:A nonreactive test r esult does not exclude the possibility of exposure to or infection with Hepatitis B virus. A nonreactive test result in individuals with prior exposure to hepatitis B may be due to antigen levels below the detection limit of this assay or lack of antigen reactivity to the antibodies in this assay. hepatitis C antibody 0.41 <1 S/CO [facility] ARCH [id number] B 10/13/2020 8:57 PM CDT [facility] Comment: Signal/Cutoff ratio < 0.79 is Nondetected [...] Hollie Perry MD HEMATOLOGY ORDERABLES Final Result [facility] [address] [place] [address], from Last 3 Months or Most Recently Relevant to Health Maintenance Insurance [employer]ICA[employer] * Guarantor: [facility] Account Type Relation to Patient Date of Phone Billing Address Institutional Other [address] [place] [address] Care Teams Motel Keeper Relationship Specialty Start Date End Date Hermann Leonard [address] [facility] [place] [address] PCP - General Obstetrics & Gynecology 05/04/24
== END 2024-11-28 17:48 | disposition left against medical advice (07) ==
DX: O20.9 Hemorrhage in early pregnancy, unspecified (principal); Z3A.16 16 weeks gestation of pregnancy
CPT/HCPCS: 99199; 99283

== ENCOUNTER 2024-12-04 11:45 | Outpatient (CLI) | payer OTHER, SELFPAY ==
[2024-12-04 13:48] LABS: Glucose 1 Hour PP 50gm Dose 76 mg/dL
== END 2024-12-04 11:46 | disposition home or self-care (01) ==
LOC: ANHLAB 11:46
PROVIDERS: Visit Provider Student in an Organized Health Care Education/Training Program
DX: N91.2 Amenorrhea, unspecified (principal)
CPT/HCPCS: 36415; 82947

== ENCOUNTER 2024-12-30 08:30 | Outpatient (CLI) | payer OTHER, SELFPAY ==
--- NOTE | ~2024-12-30 | US_ITS ---
EXAMINATION: US OB /maternal detail DATE: 12/30/2024 10:08 INDICATION: Encounter for supervision of normal during second trimester TECHNIQUE: Multiple obstetric sonographic images performed. FINDINGS: There is a single living fetus in variable presentation. The placenta is anterior and low-lying with caudal margin of 3.0 cm from the internal cervical os. Small anechoic placental bryson along the superficial margin of the placenta near the cord insertion. Amniotic fluid volume is subjectively normal with normal deepest vertical pocket measurement of 4.5 cm. heart rate of 138 beats per minute. Normal cervical length of 4.8 cm. The following anatomy was identified as normal: Normal situs solitus Ventricles, choroid plexus, falx and cava septum pellucidum Cerebellum and cisterna magna Nuchal fold Upper lip Spine Heart Diaphragm Stomach Kidneys Bladder 3 vessel cord and cord insertion Bilateral upper and lower extremities including hands and feet The following biometric data were obtained: BPD: 4.7 cm -> 20 weeks 1 days Head circumference: 17.4 cm -> 20 weeks 0 days Abdominal circumference: 14.9 cm -> 20 weeks 1 days Femur length: 3.2 cm -> 20 weeks 0 days These measurements are concordant. Head circumference to abdominal circumference ratio: 1.17 (normal range 1.07-1.25). Estimated weight: 332 g (+/-) 50 g. or 12 oz. (+/-) 2 oz. IMPRESSION: 1. Single living fetus with variable presentation with heart rate of 138 bpm. 2. Gestational age by ultrasound of 20 weeks 1 day(s) (+/-) 1 week 3 day(s) with ultrasound estimated date of delivery (TRIP) of 05/18/2025. Estimated weight is 43rd percentile by Hadlock criteria when 05/18/2025 is used as the TRIP. Please correlate with clinical information or earlier ultrasounds for most accurate TRIP. 3. Normal survey. 4. Small venous bryson along the superficial margin of the cord insertion of the anterior placenta which is low-lying with caudal margin 3.0 cm from the internal cervical os. Reviewed, dictated and finalized at location A. IMPRESSION: 1. Single living fetus with variable presentation with heart rate of 138 bpm. 2. Gestational age by ultrasound of 20 weeks 1 day(s) (+/-) 1 week 3 day(s) w ith ultrasound estimated date of delivery (TRIP) of 05/18/2025. Estimated w eight is 43rd percentile by Hadlock criteria when 05/18/2025 is used as the TRIP. Please correlate with clinical information or earlier ultrasounds for most acc urate TRIP. 3. Normal survey. 4. Small venous bryson along the superficial margin of the cord insertion of the anterior placenta which is low-lying with caudal margin 3.0 cm from the interna l cervical os.
--- OUTSIDE RECORDS SUMMARY | 2024-12-30 08:41 | XMS_ITS | Encounter Summary ---
Author Organization [facility] Address [address] [place] [address] Phone Care Team Providers Care Medical Professionals Name Role Phone Hollie Perry MD Primary Care Provider Hermann Leonard Primary Care Provider [phone] Encounter Details Date Type Department Care Team (Late st Contact Info) Description 11/30/2021 Lab Requisition [facility] Services [address] [place] [address] Karin Lin, SCRAP COLLECTOR, CINDER PIT CRANE OPERATOR [address] [place] [address] Encounter for pre-employment examination Social [...] 0.04 <8.01 IU/mL 12/02/2021 11:24 AM CDT [facility] TB ANTIGEN 1 0.01 <0.35 IU/mL 12/02/2021 11:24 AM CDT [facility] TB ANTIGEN 2 0.03 <0.35 IU/mL 12/02/2021 11:24 AM CDT [facility] MITOGEN CONTROL >10.00 >0.49 IU/mL 12/03/19 11:24 AM CDT [facility] INTEPRETATION TB NEGATIVE NEGATIVE, NEGATIVE (TB antigen response less than 25% of internal negative control value) 12/02/2021 11:24 AM CDT [facility] Comment:No immune response t o Mycobacterium tuberculosis antigens was noted. M. tuberculosis infection unlikely. Blood No Phlebotomy Charged / Unknown 11/30/2021 10:25 AM CDT 11/30/2021 2:14 PM CDT Narrative [facility] - 12/02/2021 11:24 AM CDT [...] APRN, CNP IMMUNOLOGY ORDERABLES F inal Result [facility] [address] [place] [address], documented in this encounter Visit Diagnoses Diagnosis Encounter for pre-employment examination Health examination of defined subpopulation documented in this encounter Additional Health Concerns Assessment Noted Time PHQ-9 Depression Total Score: 0 10/02/19 21 9:00 AM CDT documented as of this encounter Care Teams Medical Professionals Relationship Specialty Start Date End Date Hollie Perry MD [address] [place] [address] PCP - General Family Medicine 09/30/20 06/13/23 Hermann Leonard 4 [facility] , [address] [address] PCP - General Obstetrics & Gynecology 05/04/24 documented as of this encounter
--- OUTSIDE RECORDS SUMMARY | 2024-12-30 08:41 | XMS_ITS | Clinical Summary ---
Author Organization [facility] Address [address] [place] [address] Phone Care Team Providers Care Instrumentation Tech Name Role Phone Hermann Leonard Primary Care Provider [phone] Allergies No known active allergies Medications traMADol [...] 10/01/2020 Immunizations Immunization Administration Dates Next Due DTAP VACCINE 02/17/2002,2001,2001 DTAP VACCINE, UNSPECIFIED FORMULATION 11/28/2005 ,01/26/2003 HEP B/HIB Combined Vaccine 2001 Hepatitis A Vaccine,unspecif ied Formulation 12/01/2004 Hepatitis A, Pediatric, Unsp ecified Formulation 03/12/2008 Hepatitis B Vaccine,unspecif ied Formulation 02/17/2002,2001 Hib Vaccine,unspecified Formulation 10/08/2002,1 2001,2001 Human Papillomavirus (HPV) 9 -valent Vaccine 12/31/2018,11/19/2014 Inactivated Polio Vaccine 11/28/2005,,2001,10/08 Influenza Vaccine 12/19/2012 MMR Vaccine 11/28/2005,07/30/2002 Meningococcal B, Recombinant 12/31/2018,12/20/19 13 Meningococcal MCV4, Unspecif ied Formulation 12/19/2012 Meningococcal Vaccine 12/31/2018 Pneumococcal Vaccine Peds - [...] Comments Blood Pressure 128/77 05/04/2024 3:14 PM POWER TRANSFORMER ASSEMBLER Pulse 88 05/04/2024 3:14 PM POWER TRANSFORMER ASSEMBLER Temperature 36.1 C (96.9 F) 05/04/2024 12:55 PM POWER TRANSFORMER ASSEMBLER Respiratory Rate 16 05/04/2024 3:14 PM POWER TRANSFORMER ASSEMBLER Oxygen Saturation 100% 05/04/2024 3:14 PM POWER TRANSFORMER ASSEMBLER Inhaled Oxygen Concentration - - Weight 77.1 kg (170 lb) 05/04/2024 12:55 PM POWER TRANSFORMER ASSEMBLER Height 162.6 cm (5' 4) 05/04/2024 12:55 PM POWER TRANSFORMER ASSEMBLER Body Mass Index 29.18 05/04/2024 12:55 PM POWER TRANSFORMER ASSEMBLER Plan of Treatment Health Maintenance Due Date [...] A IGM ANTIBODY NON DETECTED NON DETECTED [facility] ARCH [id number] 10/13/2020 8:57 PM CDT [facility] Comment: IGM Antibodies to HAV not detected. Does not exclude early acute or recovered HAV infection. HEP B CORE AB (IGM) NON DETECTED NON DETECTED [facility] ARCH [id number] B 10/13/2020 8:57 PM CDT [facility] Comment:IGM anti-HBC not det ected. Does not exclude the possibility of exposure to or infection with HBV. HEPATITIS B SURFACE ANTIGEN NON DETECTED NON DETECTED [facility] ARCH [id number] B 10/13/2020 8:57 PM CDT [facility] Comment:A nonreactive test r esult does not exclude the possibility of exposure to or infection with Hepatitis B virus. A nonreactive test result in individuals with prior exposure to hepatitis B may be due to antigen levels below the detection limit of this assay or lack of antigen reactivity to the antibodies in this assay. hepatitis C antibody 0.41 <1 S/CO [facility] ARCH [id number] B 10/13/2020 8:57 PM CDT [facility] Comment: Signal/Cutoff ratio < 0.79 is Nondetected Signal/Cutoff ratio 0.80-0.99 is Grayzone Signal/Cutoff ratio > 0.99 is Detected Supplemental assays are recommended if signal/cutoff ratio is >/=1.00. Signal/cutoff ratio result >/= 5.00 is 97% predictive of positivity for recombinant immunoblot assay (RIBA) and will be reported to the [place] Department of Public Health as required. Blood Venipuncture / Unknown 10/13/2020 10:39 AM CDT 10/13/2020 10:39 AM CDT us Hollie Perry MD HEMATOLOGY ORDERABLES Final Result [facility] [address] [place] [address], from Last 3 Months or Most Recently Relevant to Health Maintenance Insurance [employer]ID [employer] * Guarantor: [facility] Account Type Relation to Patient Date of Phone Billing Address Institutional Other [address] [place] [address] Care Teams Instrumentation Tech Relationship Specialty Start Date End Date Hermann Leonard [address] [place] [address] [place] [address] PCP - General Obstetrics & Gynecology 05/04/24
--- OUTSIDE RECORDS SUMMARY | 2024-12-30 08:41 | XMS_ITS | Clinical Summary ---
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 gonorrhoeae Not detected Not detected ROCKYSONIA MARTINEZ (ANALY) Comment: Testing performed by the [facility]. This assay detects Chlamydia trachomatis and Neisseria gonorrhoeae by nucleic acid amplification testing (NAAT). This test is approved by the [facility] Food and Drug Administration and the performance characteristics have been verified by the laboratory. The performance characteristics of this test have not been evaluated in women or individuals less than 16 years of age. Testing performed by: [facility], [address] [place] [address], [place]., [address] Urine (None) 10/19/2020 12:5 1 AM CDT 10/19/2020 8:54 AM CDT Ricky Cedeño MD LAB MICROBIOLOGY - GENERAL OR DERABLES Final Result DARRELL MARTINEZ ([place]) 1 [facility] Department [place] [address] from Last 3 Months or Most Recently Relevant to Health Maintenance Insurance [facility] Advance Directives For more information, please contact: [phone] * Full Code (Latest Code Status on [...] in case of cardiopulmonary arrest Care Teams Antisubmarine Weapons Officer Relationship Specialty Start Date End Date Hermann Leonard MD [address] [facility] [address] [address] [address] PCP - General 09/07/20 Eagle Watt MD Consulting Physician Obstetrics and Gynecology 08/30/18
== END 2024-12-30 08:31 | disposition home or self-care (01) ==
PROVIDERS: Visit Provider Student in an Organized Health Care Education/Training Program
DX: Z34.92 Encounter for supervision of normal pregnancy, unspecified, second trimester (principal); Z3A.20 20 weeks gestation of pregnancy
CPT/HCPCS: 76805

== ENCOUNTER 2025-01-30 13:40 | Outpatient (CLI) | payer OTHER, SELFPAY ==
--- NOTE | ~2025-01-30 | US_ITS ---
US OB limited 01/30/2025 14:38 Indication: Supervision of normal Procedure: Limited obstetrical ultrasound Comparison: 12/30/2024 Findings: There is a single living intrauterine in breech presentation. heart rate 140 BPM. Amniotic fluid index is above normal limits measuring 22.3 cm (normal range for gestational age 9.8-21.9 cm). Placenta is posterior without previa. Cervical length 4.4 cm. Impression: 1: Polyhydramnios. Reviewed, dictated and finalized at location O. ESTATE ADMINISTRATOR Impression: 1: Polyhydramnios.
--- OUTSIDE RECORDS SUMMARY | 2025-01-30 13:43 | XMS_ITS | Clinical Summary ---
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 gonorrhoeae Not detected Not detected ROCKYSONIA MARTINEZ (ANALY) Comment: Testing performed by the [facility]. This assay detects Chlamydia trachomatis and Neisseria gonorrhoeae by nucleic acid amplification testing (NAAT). This test is approved by the [facility] Food and Drug Administration and the performance characteristics have been verified by the laboratory. The performance characteristics of this test have not been evaluated in women or individuals less than 16 years of age. Testing performed by: [facility], [address] [place] [address], [place]., [address] Urine (None) 10/19/2020 12:5 1 AM CDT 10/19/2020 8:54 AM CDT Ricky Cedeño MD LAB MICROBIOLOGY - GENERAL OR DERABLES Final Result DARRELL MARTINEZ ([place]) 1 [facility] Department [place] [address] from Last 3 Months or Most Recently Relevant to Health Maintenance Insurance [facility] Advance Directives For more information, please contact: [phone] * Full Code (Latest Code Status on [...] in case of cardiopulmonary arrest Care Teams Pricing Associate Relationship Specialty Start Date End Date Hermann Leonard MD 4 [facility] [address] [address] PCP - General 09/07/20 Eagle Watt MD Consulting Physician Obstetrics and Gynecology 08/30/18
--- OUTSIDE RECORDS SUMMARY | 2025-01-30 13:43 | XMS_ITS | Encounter Summary ---
Author Organization [facility] Address [address] [place] [address] Phone Care Team Providers Care Assistant Front End Manager Name Role Phone Hollie Perry MD Primary Care Provider [phone] Hermann Leonard Primary Care Provider Encounter Details Date Type Department Care Team (Late st Contact Info) Description 11/30/2021 Lab [facility] [address] [place] [address] Karin Lin, SYSTEMS SUPPORT SPECIALIST, SQUARING MACHINE OPERATOR [address] [place] [address] Encounter for pre-employment examination Social History Tobacco [...] 0.04 <8.01 IU/mL 12/02/2021 11:24 AM CDT [facility] TB ANTIGEN 1 0.01 <0.35 IU/mL 12/02/2021 11:24 AM CDT [facility] TB ANTIGEN 2 0.03 <0.35 IU/mL 12/02/2021 11:24 AM CDT [facility] MITOGEN CONTROL >10.00 >0.49 IU/mL 12/03/19 11:24 AM CDT [facility] INTEPRETATION TB NEGATIVE NEGATIVE, NEGATIVE (TB antigen response less than 25% of internal negative control value) 12/02/2021 11:24 AM CDT [facility] Comment:No immune response t o Mycobacterium tuberculosis antigens was noted. M. tuberculosis infection unlikely. Blood No Phlebotomy Charged / Unknown 11/30/2021 10:25 AM CDT 11/30/2021 2:14 PM CDT Narrative [facility] - 12/02/2021 11:24 AM CDT A [...] APRN, CNP IMMUNOLOGY ORDERABLES F inal Result [facility] [address] [place] [address], documented in this encounter Visit Diagnoses Diagnosis Encounter for pre-employment examination Health examination of defined subpopulation documented in this encounter Additional Health Concerns Assessment Noted Time PHQ-9 Depression Total Score: 0 10/02/19 21 9:00 AM CDT documented as of this encounter Care Teams Assistant Front End Manager Relationship Specialty Start Date End Date Hollie Perry MD [address] [place] [address] PCP - General Family Medicine 09/30/20 06/13/23 Hermann Leonard 4 [facility] , [address] [address] PCP - General Obstetrics & Gynecology 05/04/24 documented as of this encounter
--- OUTSIDE RECORDS SUMMARY | 2025-01-30 13:43 | XMS_ITS | Clinical Summary ---
Author Organization [facility] Address [address] [place] [address] Phone Care Team Providers Care Trauma Surgeon Name Role Phone Hermann Leonard Primary Care Provider [phone] Allergies No known active allergies Medications traMADol [...] Comments Blood Pressure 128/77 05/04/2024 3:14 PM LAP REGULATOR Pulse 88 05/04/2024 3:14 PM LAP REGULATOR Temperature 36.1 C (96.9 F) 05/04/2024 12:55 PM LAP REGULATOR Respiratory Rate 16 05/04/2024 3:14 PM LAP REGULATOR Oxygen Saturation 100% 05/04/2024 3:14 PM LAP REGULATOR Inhaled Oxygen Concentration - - Weight 77.1 kg (170 lb) 05/04/2024 12:55 PM LAP REGULATOR Height 162.6 cm (5' 4) 05/04/2024 12:55 PM LAP REGULATOR Body Mass Index 29.18 05/04/2024 12:55 PM LAP REGULATOR Plan of Treatment Health Maintenance Due Date [...] A IGM ANTIBODY NON DETECTED NON DETECTED [facility] ARCH [id number] 10/13/2020 8:57 PM CDT [facility] Comment: IGM Antibodies to HAV not detected. Does not exclude early acute or recovered HAV infection. HEP B CORE AB (IGM) NON DETECTED NON DETECTED [facility] ARCH [id number] B 10/13/2020 8:[address] [facility] Comment:IGM anti-HBC not det ected. Does not exclude the possibility of exposure to or infection with HBV. HEPATITIS B SURFACE ANTIGEN NON DETECTED NON DETECTED [facility] ARCH [id number] B 10/13/2020 8:[address] [facility] Comment:A nonreactive test r esult does not exclude the possibility of exposure to or infection with Hepatitis B virus. A nonreactive test result in individuals with prior exposure to hepatitis B may be due to antigen levels below the detection limit of this assay or lack of antigen reactivity to the antibodies in this assay. hepatitis C antibody 0.41 <1 S/CO [facility] ARCH [id number] B 10/13/2020 8:[address] [facility] Comment: Signal/Cutoff ratio < 0.79 is Nondetected Signal/Cutoff ratio 0.80-0.99 is Grayzone Signal/Cutoff ratio > 0.99 is Detected Supplemental assays are recommended if signal/cutoff ratio is >/=1.00. Signal/cutoff ratio result >/= 5.00 is 97% predictive of positivity for recombinant immunoblot assay (RIBA) and will be reported to the [place] Department of Public Health as required. Blood Venipuncture / Unknown 10/13/2020 10:39 AM CDT 10/13/2020 10:39 AM CDT us Hollie Perry MD HEMATOLOGY ORDERABLES Final Result [facility] [address] [place] [address], from Last 3 Months or Most Recently Relevant to Health Maintenance Insurance [employer] MEDICAID [employer]ID [employer] * Guarantor: [facility] Account Type Relation to Patient Date of Phone Billing Address Institutional Other [address] [place] [address] Care Teams Trauma Surgeon Relationship Specialty Start Date End Date Hermann Leonard [address] [place] [address] [place] [address] PCP - General Obstetrics & Gynecology 05/04/24
== END 2025-01-30 13:41 | disposition home or self-care (01) ==
PROVIDERS: Visit Provider Student in an Organized Health Care Education/Training Program
DX: O44.42 Low lying placenta NOS or without hemorrhage, second trimester (principal); O40.9XX0 Polyhydramnios, unspecified trimester, not applicable or unspecified; Z3A.00 Weeks of gestation of pregnancy not specified
CPT/HCPCS: 76815

== ENCOUNTER 2025-03-05 09:44 | Outpatient (CLI) | payer OTHER, SELFPAY ==
[2025-03-05 11:25] LABS: Hematocrit 33.6 % (37.0-47.0); Hemoglobin 11.4 g/dL (12.0-15.0); Mean Corpuscular HGB Conc 33.9 g/dl (32-36); Mean Corpuscular Hemoglobin 30.7 pg (26-34); Mean Corpuscular Volume 90.6 fl (80-100); Platelet Count Result 223 k/mm3 (150-375); Red Blood Count 3.71 M/mm3 (4.2-5.4); White Blood Count 9.3 K/mm3 (4.5-10.0)
[2025-03-05 11:46] LABS: Glucose 1 Hour PP 50gm Dose 61 mg/dL
[2025-03-05 12:15] LABS: Syphilis IgG/IgM Antibody Non-Reactive (Nonreactive)
[2025-03-05 12:28] LABS: HIV 1/2 Ab P24 Ag Result Negative (Negative)
== END 2025-03-05 09:45 | disposition home or self-care (01) ==
LOC: ANHLAB 09:45
PROVIDERS: Visit Provider Student in an Organized Health Care Education/Training Program
DX: Z34.90 Encounter for supervision of normal pregnancy, unspecified, unspecified trimester (principal); Z3A.00 Weeks of gestation of pregnancy not specified
CPT/HCPCS: 36415; 82947; 85027; 86593; 86703; G0432